=== PATIENT | female | born 1995 | race Hispanic/Latino ===

== ENCOUNTER 2021-04-10 11:25 | Emergency (ER) | payer OTHER ==
[~2021-04-10] VITALS: Ht 165.1 cm; Wt 85.9 kg
== END 2021-04-10 12:43 | disposition home or self-care (01) ==
LOC: FSED 11:40
DX: R53.81 Other malaise (principal); J02.9 Acute pharyngitis, unspecified; B34.9 Viral infection, unspecified
CPT/HCPCS: 81003; 81025; 83518; 87400; 99282